=== PATIENT | female | born 1960 | race Caucasian/White ===

== ENCOUNTER → 2022-10-14 | Outpatient (CLI) | payer OTHER | END | disposition home or self-care (01) | LOC: RESCLI 12:46 | PROVIDERS: ATTEND Internal Medicine | DX: M06.9 Rheumatoid arthritis, unspecified (principal); I10 Essential (primary) hypertension; K21.9 Gastro-esophageal reflux disease without esophagitis; M85.80 Other specified disorders of bone density and structure, unspecified site; Z88.8 Allergy status to other drugs, medicaments and biological substances; Z72.89 Other problems related to lifestyle; Z82.49 Family history of ischemic heart disease and other diseases of the circulatory system; Z98.890 Other specified postprocedural states; Z79.899 Other long term (current) drug therapy ==

== ENCOUNTER → 2024-02-17 | Outpatient (CLI) | payer OTHER | END | disposition home or self-care (01) | LOC: RESCLI 14:37 | PROVIDERS: ATTEND Internal Medicine | DX: I10 Essential (primary) hypertension (principal); M85.80 Other specified disorders of bone density and structure, unspecified site; K21.9 Gastro-esophageal reflux disease without esophagitis; M06.9 Rheumatoid arthritis, unspecified; Z79.899 Other long term (current) drug therapy; Z88.8 Allergy status to other drugs, medicaments and biological substances; Z98.890 Other specified postprocedural states ==